=== PATIENT | male | born 1950 | race Hispanic/Latino ===

== ENCOUNTER 2017-04-24 14:01 | Outpatient (CLI) | payer OTHER ==
--- NOTE | 2017-04-24 14:48 | XRay Report ---
XRAY RIGHT KNEE 3 VIEWS: 04/24/17 14:01:00 CLINICAL: Right knee pain for 2 months. FINDINGS: No fracture or dislocation. Mild patellofemoral joint osteoarthritis. The medial and lateral joint spaces are normal. No joint effusion. A large tortuous vascular graft is identified in the thigh and the calf. The soft tissues are otherwise normal. IMPRESSION: Mild patellofemoral joint osteoarthritis but otherwise normal.
== END 2017-04-24 14:02 | disposition home or self-care (01) ==
LOC: SPVIMAG 14:01
PROVIDERS: ATTEND Internal Medicine Rheumatology
DX: M17.11 Unilateral primary osteoarthritis, right knee (principal)